=== PATIENT | male | born 1990 | race Hispanic/Latino ===

== ENCOUNTER 2024-10-18 20:16 | Emergency (ER) | payer SELFPAY ==
[2024-10-18 20:17] VITALS: BP 141/83; PULSE 89; RESP 15; TEMP 36.4; O2SAT 100; BMI 32.3
[2024-10-19 00:17] VITALS: PULSE 86; RESP 16; O2SAT 98
--- NOTE | 2024-10-19 00:46 | EX.ED.VIS.UR ---
HPI HPI - URI History of Present Illness Chief Complaint: Cold Sx Informant: patient Onset/Context/Timing Onset: Days Context: Gradual Onset Timing: Continuous Current Severity: Mild Maximum Severity: Mild Associated Symptoms Associated Symptoms: Positive for Nasal Congestion, Myalgias and Nonproductive cough Narrative Narrative: 34-year-old eby-Vvkigzg-surdtlom male no Cee[facility] past medical history. Currently on no medications. He has had a cough, sore throat and bodyaches last several days. He is able to swallow. He denies any vomiting or diarrhea. No shortness of breath. No abdominal pain. Prior similar symptoms: Yes Recent Illness/Hospitalization: No ROS ROS ED ROS Narrative Cough. Sore throat. Body aches. Constitutional Constitutional ED: Denies chills or fever(s) Eyes Eyes: Denies blurry vision ENT ENT ED: Reports sore throat; Denies ear pain or rhinorrhea Cardiovascular Cardiovascular: Denies chest pain or palpitations Respiratory/Chest Respiratory/Chest: Reports cough; Denies dyspnea or dyspnea on exertion Gastrointestinal Gastrointestinal: Denies abdominal pain, constipation, diarrhea, melena, nausea or vomiting Genitourinary Genitourinary ED: Denies dysuria or hematuria Musculoskeletal Musculoskeletal: Reports myalgias; Denies arthralgias or back pain Integumentary Denies abscess or Abrasions Neurologic Neurologic: Reports headache(s) Psychiatric Psychiatric: Denies anxiety or depression Endocrine Endocrinology: Denies cold intolerance Hematologic/Lymphatic Hematologic/Lymphatic: Denies easy bleeding, easy bruising or lymphadenopathy Allergic/Immunologic Allergic/Immunologic ED: Denies mouth swelling, tongue swelling, urticaria or other PFSH PFSH Medical History no medical history no medical history Home Medications ?Medication ?Instructions ?Recorded ?Last Taken ?Type NK 10/18/24 Unknown History Allergy/AdvReac Type Severity Reaction Status Date / Time No Known Allergies Allergy Verified 10/18/24 20:17 Family History no significant family his Surgical History no surgical history Social History Smoking Status: Never smoker EXAM Physical Exam Narrative Exam Narrative: Well-appearing 34 male. Vital signs stable afebrile. Pulse ox 100% on room air no signs hypoxia. 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 H EENT exam pupils round react to light. Moist mutes Merrit membranes. Minimal posterior pharyngeal erythema. No exudate. No peritonsillar abscess. No stridor or drooling. TMs minimally erythematous. Canals normal. Neck nontender no lymphadenopathy. Trachea midline. No meningismus. Lungs clear to auscultation bilaterally. Heart regular rhythm no murmur. Chest wall and ribs nontender. Abdomen soft nontender. Moving all 4 extremities. Nontender no edema. Normal range of motion. Normal strength. Neurologically he is awake alert. Answering questions following commands. Benign exam consistent with a viral syndrome. Const Vital Signs: 10/18/24 20:17 10/19/24 00:17 Temperature 97.6 F L Temperature Source Temporal Pulse Rate 89 86 Respiratory Rate 15 16 Blood Pressure 141/83 H Blood Pressure Mean 102 Pulse Ox 100 98 Oxygen Delivery Method Room Air Positive well nourished and well developed; Negative for cachectic or contractures General Appearance ED: well developed and NAD; Negative for cachectic, contractures, cyanotic, diaphoretic or pallor Nutritional Appearance: Negative for cachectic HEENT Reports moist mucous membranes HEENT Narrative: Minimal posterior pharyngeal erythema. Minimal TM redness. No lymphadenopathy. No trouble swallowing or breathing. normocephalic Throat: posterior oropharynx abnormal Positive for erythema; Negative for posterior oropharynx normal Eyes PERRL and EOMs intact bilaterally General Eye ED: Negative for pale conjunctiva or scleral icterus Neck no lymphadenopathy, supple, no meningeal signs and no JVD Resp normal respiratory effort and clear to auscultation bilaterally Cardio S1 normal heart sound, S2 normal heart sound and no murmurs Rate: regular rate Rhythm: regular rhythm GI non-tender, non-distended and no masses Auscultation: normoactive bowel sounds Palpation: soft; Negative for tender, guarding or mass Back/Spine no CVA tenderness and normal ROM Extremity normal to inspection and full ROM General Extremety ED: Negative for cyanosis or tenderness General Extremity: Negative for cyanosis Neuro oriented x3 and CN's II-XII intact bilaterally Sensorium / Orientation: alert, oriented to person, oriented to place and oriented to time Motor Exam: strength 5/5 throughout Psych mental status grossly normal Skin General Skin Exam: Negative for jaundice or pallor Lesions: no lesions Rashes: no rashes MDM MDM MDM Narrative Medical decision making narrative: 34-year-old male exam and history consistent with viral syndrome. Fluids and rest. Tylenol Motrin. Off work next 2 days. Given Motrin here prior to discharge. Patient is comfortable with the plan. Outpatient follow-up with the clinic as needed. History & Record Review Discussion w/independent historian: Patient Additional record(s) reviewed:: No prior records Discharge Plan Triage Chief Complaint: Cold Sx ED Provider: Quique Herrera Dx/Rx/DC Orders Clinical Impression: Viral syndrome Instructions: ED URI, Viral, No Abx (Adult) Prescriptions: No Action NK Primary Care Provider: Care Physician,No Primary Referrals: Care Physician,No Primary [Primary Care Provider] - Annmarie Hernandez [facility], [facility] [[facility]] - 1 Week if not improving Activity Restrictions/Additional Instructions: Plenty of fluids and rest. Motrin and Tylenol for body aches and fever. This should get progressively better in the next 3 to 5 days. Follow-up with your doctor if not improving. Off work next 2 days. Print Language: [place] Disposition Disposition: Home, Self Care
== END 2024-10-19 01:12 | disposition home or self-care (01) ==
PROVIDERS: Emergency Provider Emergency Medicine; Visit Provider Emergency Medicine
DX: B34.9 Viral infection, unspecified (principal)
CPT/HCPCS: 99282